=== PATIENT | male | born 1980 | race Caucasian/White ===

== ENCOUNTER 2023-10-17 08:37 | Emergency (ER) | payer SELFPAY ==
[~2023-10-17] VITALS: Ht 170.2 cm; Wt 91.0 kg
[2023-10-17 09:01] VITALS: PULSE 118; RESP 20; O2SAT 98
[2023-10-17] MEDS: IPRATROPIUM BROMIDE (0.02%) 0.5MG/2.5ML NEB HHN STA (09:01)
[2023-10-17] MEDS: PREDNISONE 20MG TABLET PO STA (09:02)
[2023-10-17] MEDS: ALBUTEROL (0.083%) 2.5MG/3ML NEB HHN SCH (09:05)
[2023-10-17] MEDS ORDERED: BICT1TAB PO (11:17)
[2023-10-17] MEDS ORDERED: ALBU6.7H15 INH (11:17)
[2023-10-17 11:20] VITALS: BP 134/77; PULSE 90; RESP 18; TEMP 98.5
== END 2023-10-17 11:20 | disposition home or self-care (01) ==
LOC: ER 08:37
DX: J45.901 Unspecified asthma with (acute) exacerbation (principal)
CPT/HCPCS: 94640; 99283; J7512; Z7610